=== PATIENT | female | born 1950 | race Caucasian/White ===

== ENCOUNTER → 2016-09-26 | Outpatient (CLI) | payer MEDICARE ==
--- NOTE | 2016-09-26 13:23 | WOMENS IMAGING REPORT ---
EXAM DESCRIPTION: BONE DENSITY HIP/SPINE COMPLETED DATE/TIME: 09/26/2016 1:07 pm REASON FOR STUDY: Z12.31 ROUTINE SCREENING MAMMO Z78.0 Z12.31 ENCNTR SCREEN MAMMOGRAM FOR MALIGNANT NEOPLASM OF ATIYA Z78.0 ASYMPTOMATIC MENOPAUSAL STATE COMPARISON: None. TECHNIQUE: Dual-Energy X-ray Absorptiometry (DEXA) of the AP Spine and Hip. LIMITATIONS: None. FINDINGS: LUMBAR SPINE: The bone mineral density (BMD) measured from L1-L4 in the AP projection correlates with a T-score of -2.4, which is osteopenia as defined by the World Health Organization. HIP: The bone mineral density (BMD) measured in the left femoral neck correlates with a T-score of -1.3, w hich is osteopenia as defined by the World Health Organization. COMMENT: The World Health Organization defines low BMD as follows: T-score: Normal: Greater than -1.0 Osteopenia: Between -1.0 and -2.5 Osteoporosis: Less than -2.5 without fractures Established osteoporosis: Less than -2.5 with fractures In general, you may wish to consider: Diagnosis Treatment Follow-up DEXA Normal BMD Prevention 2-3 years Osteopenia Prevention/Therapy 1-2 years Osteoporosis Therapy Yearly TECHNICAL DOCUMENTATION: JOB ID: [id number] [employer] All Rights Reserved
--- NOTE | 2016-09-26 18:07 | WOMENS IMAGING REPORT ---
EXAM DESCRIPTION: BILAT SCREENING MAMMO W/CAD COMPLETED DATE/TIME: 09/26/2016 1:06 pm REASON FOR STUDY: Z12.31 ROUTINE SCREENING MAMMO Z78.0 Z12.31 ENCNTR SCREEN MAMMOGRAM FOR MALIGNANT NEOPLASM OF ATIYA Z78.0 ASYMPTOMATIC MENOPAUSAL STATE COMPARISON: Baseline study TECHNIQUE: Standard craniocaudal and mediolateral oblique views of each breast recorded using digita l acquisition. LIMITATIONS: None. FINDINGS: Findings present which are benign by mammographic criteria. No suspicious masses, calcifi cations or architectural distortion. Coarse dense benign appearing left breast calcification in the retroareolar region Read with the assistance of CAD. .[facility] - R2 Cenova Version 1.3 .[facility] - R2 Cenova Version 1.3 .[facility] - R2 Cenova Version 2.4 .[facility] - R2 Cenova Version 2.4 .[facility] - R2 [employer] Version 9.2 Benign mammographic findings may include one or more of the following: Smooth masses, popcorn/rim/co arse calcifications, asymmetries, post-procedure changes, and lesions with long-standing stability. BREAST DENSITY: b. There are scattered areas of fibroglandular density. BIRAD: 2 BENIGN FINDING(S) RECOMMENDATION: ROUTINE SCREENING COMMENT: PATIENT NOTIFIED BY LETTER. The [employer] recommends an annual screening mammogram for women aged 40 years or over. Each patient will receive a reminder prior to the anniversary date of her mammogram. The [employer] (ACR) has developed recommendations for screening MRI of the breast s in certain patient populations, to be used in conjunction with mammography. Breast MRI surveillanc e may be appropriate for women with more than 20% lifetime risk of developing breast cancer as deter mined by genetic testing, significant family history of the disease, or history of mantle radiation f or Hodgkins Disease. ACR Practice Guidelines 2008. TECHNICAL DOCUMENTATION: FINDING NUMBER: (1) ASSESSMENT: (1) JOB ID: [id number] [employer]- All Rights Reserved
== END ==
LOC: WI 12:38
PROVIDERS: ATTEND Physician Assistant
DX: Z12.31 Encounter for screening mammogram for malignant neoplasm of breast (principal); Z78.0 Asymptomatic menopausal state; M85.88 Other specified disorders of bone density and structure, other site
CPT/HCPCS: 77080; G0202; 77067

== ENCOUNTER → 2016-10-01 | Outpatient (CLI) | payer MEDICARE ==
--- NOTE | 2016-10-01 17:20 | XCELERA REPORT ---
[address] [address] Lower Extremity Arterial Evaluation Name: SHAW MENDOZA Age: 66 yrs Gender: Female : 1950 Patient Status: Outpatient Patient Location: Study Date: 10/01/2016 01:39 PM Procedure: A color flow and duplex scan of the lower extremity arteries was performed bilaterally with velocity and waveform anaylsis. Ankle brachial indicies performed. Reason For Study: M79.604 M79.605 Ordering Physician: GREGG DEAN PA-C Performed By: Anushka Nice Measurements and Calculations Right Left SED SPECIAL EDUCATION TEACHER PSV 122.6 114.7 cm/sec Prox PFA PSV -92.1 -193.5 cm/sec Prox SFA PSV -109.7 116.3 cm/sec Mid SFA PSV -70.7 -99.7 cm/sec Dist SFA PSV -96.9 -78.6 cm/sec Prox Pop A PSV 53.4 44.3 cm/sec Dist ANABELA PSV 59.4 55.3 cm/sec Dist COMMUNICATION SPEC PSV 61.0 53.6 cm/sec Timoteo Pedis PSV 52.8 52.2 cm/sec Right Side Arterial Evaluation Normal velocity, waveform and triphasic flow are present, from the Common Femoral artery down to the infrageniculate vessels. The ankle-brachial index is 1.08. 0% stenosis is noted. Left Side Arterial Evaluation Normal velocity, waveform and triphasic flow are present, from the Common Femoral artery to the Popliteal, then biphasic to the infrageniculate vessels. The ankle-brachial index is 1.09. 0-19 % stenosis is noted at the infrageniculate vessels. Interpretation Summary No hemodynamically significant lesions in the right lower extremity only, on duplex imaging, at rest. Mild hemodynamically significant lesions in the left lower extremity only, on duplex imaging, at rest. : GREGG DEAN PA-C > Brock Pringle
== END ==
LOC: SP 13:08
PROVIDERS: ATTEND Physician Assistant
DX: M79.604 Pain in right leg (principal); M79.605 Pain in left leg
CPT/HCPCS: 93925

== ENCOUNTER 2017-09-01 13:08 | Emergency (ER) | payer MEDICARE ==
[2017-09-01] MEDS ORDERED: ASPIRIN 81 MG TABLET, CHEWABLE PO ONE (14:28)
--- NOTE | 2017-09-01 14:37 | ER Document Report ---
ED Medical Screen (RME) - General Chief Complaint: Chest Tightness Stated Complaint: CHEST TIGHTNESS, ARM PAIN Time Seen by Provider: 09/01/17 14:28 Mode of Arrival: Ambulatory Information source: Patient Notes: 66-year-old female presents with complaints of chest tightness bilateral arm pain intermittent over the past few days denies any previous cardiac history I have greeted and performed a rapid initial assessment of this patient. A comprehensive ED assessment and evaluation of the patient, analysis of test results and completion of the medical decision making process will be conducted by additional ED providers. PHYSICAL EXAMINATION: GENERAL: Well-appearing, well-nourished and in no acute distress. HEAD: Atraumatic, normocephalic. EYES: Pupils equal round extraocular movements intact, conjunctiva are normal. ENT: Nares patent NECK: Normal range of motion LUNGS: No respiratory distress Musculoskeletal: Normal range of motion NEUROLOGICAL: Normal speech, normal gait. PSYCH: Normal mood, normal affect. SKIN: Warm, Dry, normal turgor, no rashes or lesions noted. TRAVEL OUTSIDE OF THE [place] IN LAST 30 DAYS: No - Related Data Allergies/Adverse Reactions: No Known Allergies Allergy (Unverified 09/01/17 13:10) Past Medical History - Social History Frequency of alcohol use: None Drug Abuse: None Pulmonary Medical History: Reports: Hx COPD Renal/ Medical History: Denies: Hx Peritoneal Dialysis Past Surgical History: Reports: Hx Tonsillectomy Physical Exam - Vital signs Vitals: Temp Pulse Resp BP Pulse Ox 98.7 F 99 20 133/69 H 95 09/01/17 13:25 09/01/17 13:25 09/01/17 13:25 09/01/17 13:25 09/01/17 13:25 Course - Vital Signs Vital signs: Temp Pulse Resp BP Pulse Ox 98.7 F 99 20 133/69 H 95 09/01/17 13:25 09/01/17 13:25 09/01/17 13:25 09/01/17 13:25 09/01/17 13:25
[2017-09-01 14:58] LABS: ABSOLUTE BASOPHILS # (AUTO) 0.1 10^3/uL (0.0-0.2); ABSOLUTE EOSINOPHILS # (AUTO) 0.4 10^3/uL (0.0-0.6); ABSOLUTE LYMPHOCYTES (AUTO) 4.3 10^3/uL (0.5-4.7); ABSOLUTE NEUT (AUTO) 6.1 10^3/uL (1.7-8.2); BASOPHILS % (AUTO) 0.5 % (0-2); EOSINOPHILS % (AUTO) 3.7 % (0-6); HEMATOCRIT 43.3 % (36.0-47.0); HEMOGLOBIN 14.6 g/dL (12.0-15.5); HGB HCT DIFFERENCE 0.5; LYMPHOCYTES % (AUTO) 35.8 % (13-45); MEAN CORPUSCULAR HEMOGLOBIN 32.7 pg (27.0-33.4); MEAN CORPUSCULAR HGB CONC 33.6 g/dL (32.0-36.0); MEAN CORPUSCULAR VOLUME 97 fl (80-97); MONOCYTES % (AUTO) 8.4 % (3-13); RED BLOOD COUNT 4.44 10^6/uL (3.72-5.28); RED CELL DISTRIBUTION WIDTH 12.7 % (11.5-14.0); SEGMENTED NEUTROPHILS % (AUTO) 51.6 % (42-78); WHITE BLOOD COUNT 11.9 10^3/uL (4.0-10.5)
--- NOTE | 2017-09-01 15:07 | RADIOLOGY REPORT (SQ) ---
EXAM DESCRIPTION: CHEST SINGLE VIEW COMPLETED DATE/TIME: 09/01/2017 2:56 pm REASON FOR STUDY: chest pain COMPARISON: 06/11/2016. EXAM PARAMETERS: NUMBER OF VIEWS: One view. TECHNIQUE: Single frontal radiographic view of the chest acquired. RADIATION DOSE: NA LIMITATIONS: None. FINDINGS: LUNGS AND PLEURA: No opacities, masses or pneumothorax. No pleural effusion. MEDIASTINUM AND HILAR STRUCTURES: No masses. Contour normal. HEART AND VASCULAR STRUCTURES: Heart normal in size. Normal vasculature. BONES: No acute findings. HARDWARE: None in the chest. OTHER: No other significant finding. IMPRESSION: NO ACUTE RADIOGRAPHIC FINDING IN THE CHEST. TECHNICAL DOCUMENTATION: JOB ID: [id number] [employer]- All Rights Reserved
[2017-09-01] MEDS ORDERED: NITROGLYCERIN 0.4 MG/TAB 25 TAB/BOTTLE SL PRN (15:15)
[2017-09-01 15:21] LABS: ALANINE AMINOTRANSFERASE 33 U/L (9-52); ALKALINE PHOSPHATASE 115 U/L (38-126); ANION GAP 11 (5-19); ASPARTATE AMINO TRANSFERASE 27 U/L (14-36); BILIRUBIN,DIRECT 0.3 mg/dL (0.0-0.4); BILIRUBIN,TOTAL 0.4 mg/dL (0.2-1.3); BLOOD UREA NITROGEN 15 mg/dL (7-20); CALCIUM 10.5 mg/dL (8.4-10.2); CARBON DIOXIDE 29 mmol/L (22-30); CHLORIDE 105 mmol/L (98-107); CREATINE KINASE 70 U/L (30-135); CREATININE RESULT 0.86 mg/dL (0.52-1.25); GLUCOSE 107 mg/dL (75-110); POTASSIUM 4.2 mmol/L (3.6-5.0); SODIUM 144.6 mmol/L (137-145); TOTAL PROTEIN 6.5 g/dL (6.3-8.2)
[2017-09-01 15:33] LABS: CREATINE KINASE MB 3.52 ng/mL (<4.55)
[2017-09-01 15:38] LABS: TROPONIN I 0.153 ng/mL
--- NOTE | 2017-09-01 15:45 | ER Document Report ---
ED Cardiac - General Mode of Arrival: Ambulatory Information source: Patient TRAVEL OUTSIDE OF THE [place] IN LAST 30 DAYS: No - HPI Patient complains to provider of: Chest tightness Quality of pain: Pressure, Sharp Chest pain precipitating factors: see notes above Cardiac risk factors: Smoker, + Family history Associated symptoms: Other - see notes above Exacerbated by: Lying flat <AREN MERA - Last Filed: 09/01/17 16:32> <COREY BACON - Last Filed: 09/01/17 22:54> - General Chief Complaint: Chest Tightness Stated Complaint: CHEST TIGHTNESS, ARM PAIN Time Seen by Provider: 09/01/17 14:28 Notes: 66 year old female with history of COPD presents to the ED complaining of intermittent chest pressure that started yesterday and worsened this morning. Patient reports that yesterday she had many episodes lasting 5-10 minutes of chest pressure that was exacerbated when laying down and relieved when sitting upright. Patient additionally complains of having intermittent sharp pain and tingling from the bilateral elbows down to her fingers which started last week, but worsened with the onset of chest pressure yesterday. Patient reports to using Excedrin, Goody Powder, and Aleve to no relief. This morning she experienced similar chest pressure and arm pain, but lasted for more than 30 minutes. Patient reports nausea and lightheadedness. Currently, the patient is complaining of substernal pressure while laying down. PCP: Gregg Sawyer (AREN MERA) - Related Data Allergies/Adverse Reactions: No Known Allergies Allergy (Unverified 09/01/17 13:10) Past Medical History - General Information source: Patient - Social History Smoking Status: Current Every Day Smoker Chew tobacco use (# tins/day): No Frequency of alcohol use: None Drug Abuse: None Family History: Other - Both parents have history of CAD in their 70s Patient has suicidal ideation: No Patient has homicidal ideation: No - Past Medical History Cardiac Medical History: Denies: Hx Hypercholesterolemia, Hx Hypertension Pulmonary Medical History: Reports: Hx COPD Endocrine Medical History: Denies: Hx Diabetes Mellitus Type 2 Renal/ Medical History: Denies: Hx Peritoneal Dialysis Past Surgical History: Reports: Hx Tonsillectomy <AREN MERA - Last Filed: 09/01/17 16:32> - Social History Smoking Education Provided: Yes <COREY BACON - Last Filed: 09/01/17 22:54> Review of Systems - Review of Systems Constitutional: No symptoms reported EENT: No symptoms reported Cardiovascular: See HPI, Chest pain, Lightheaded Respiratory: No symptoms reported Gastrointestinal: See HPI, Nausea Genitourinary: No symptoms reported Female Genitourinary: No symptoms reported Musculoskeletal: See HPI, Other - bilateral arm pain Skin: No symptoms reported Hematologic/Lymphatic: No symptoms reported Neurological/Psychological: No symptoms reported -: Yes All other systems reviewed and negative <AREN MERA - Last Filed: 09/01/17 16:32> Physical Exam <AREN MERA - Last Filed: 09/01/17 16:32> <COREY BACON - Last Filed: 09/01/17 22:54> - Vital signs Vitals: Temp Pulse Resp BP Pulse Ox 98.7 F 99 20 133/69 H 95 09/01/17 13:25 09/01/17 13:25 09/01/17 13:25 09/01/17 13:25 09/01/17 13:25 - Notes Notes: GENERAL: Alert, interacts well. No acute distress. HEAD: Normocephalic, atraumatic. EYES: Pupils equal, round, and reactive to light. Extraocular movements intact. ENT: Oral mucosa moist, tongue midline. NECK: Full range of motion. Supple. Trachea midline. LUNGS: Clear to auscultation bilaterally, no wheezes, rales, or rhonchi. No respiratory distress. HEART: Regular rate and rhythm. No murmurs, gallops, or rubs. ABDOMEN: Soft. Non-distended. Bowel sounds present in all 4 quadrants. Mild tenderness to palpation to the epigastrium. EXTREMITIES: Moves all 4 extremities spontaneously. No edema, radial and dorsalis pedis pulses 2/4 bilaterally. No cyanosis. NEUROLOGICAL: Alert and oriented x3. Normal speech. PSYCH: Normal affect, normal mood. SKIN: Warm, dry, normal turgor. No rashes or lesions noted. (AREN MERA) Course - Laboratory Result Diagrams: 09/01/17 14:49 09/01/17 14:49 <AREN MERA - Last Filed: 09/01/17 16:32> - Laboratory Result Diagrams: 09/01/17 14:49 09/01/17 14:49 <COREY BACON - Last Filed: 09/01/17 22:54> - Re-evaluation Re-evalutation: 09/01/17 16:00 CBC shows leukocytosis of 11.9, CMP grossly unremarkable, cardiac enzymes show non-STEMI with a positive troponin of 0.153, chest x-ray shows no acute process , patient was given aspirin, Lovenox, nitroglycerin which decreased her pain but did not completely relieve it, initial EKG shows sinus tachycardia at a rate of [address] segment depressions but does not meet STEMI criteria, repeat EKG shows improvement in the ST segment depressions and a sinus rhythm at a rate of 80. At this time I discussed the positive troponin and the non-STEMI finding with the patient and the fact that we do not have interventional cardiology here. Patient is agreeable to being transferred in case she needs to have a catheterization performed. Patient is agreeable to transfer, requests transfer to [facility]. They have initiated a phone call to their transfer line and they will call me back. 09/01/17 16:23 Patient was rechecked, pain is almost completely gone however she now has some wheezing when she walks back from the bathroom, she will be given an albuterol breathing treatment. Has not had any desaturation. Discussed case with Dr. Estevez the flight attendant ramp from [facility], states that given her history of COPD and the fact that she is having some wheezing and shortness of breath she would like this patient placed on the medicine service and cardiology will consult. States that because the patient is currently wheezing she does not want the patient to receive a beta-heather, if the wheezing resolved by the time she gets [facility] they will give her 1 orally there. 09/01/17 16:[address] Heller from [facility] internal medicine, accepts the patient to his service. They will call me with bed assignment and then we will arrange transport. 09/01/17 16:34 prehypertension will continue to be followed at [facility]. 09/01/17 22:53 This is a late entry, at 1945 transport was at bedside and I did go in and personally reexamined the patient, presently she is denying any shortness of breath or any chest pain. Has no complaints aside from the skin on her arm where the IV is taped is pulling. Patient is stable for transport. (COREY BACON) - Vital Signs Vital signs: Temp Pulse Resp BP Pulse Ox 97.9 F 99 17 102/61 95 09/01/17 20:10 09/01/17 13:25 09/01/17 19:58 09/01/17 19:59 09/01/17 19:58 - Laboratory Laboratory results interpreted by me: 09/01/17 09/01/17 14:49 14:49 WBC 11.9 H Calcium 10.5 H - EKG Interpretation by Me Additional EKG results interpreted by me: 09/01/17 16:00 Initial EKG shows sinus tachycardia at a rate of 102, left axis deviation, normal intervals, slight ST segment depressions in lead II, less than 1 mm, also slight ST segment depressions in aVF, less than 1 mm, minimal ST segment elevations in V2 again less than 1 mm does not meet STEMI criteria, T-wave inversions in the 2, V3, V4, V5 and biphasic T waves in V6, T-wave inversions in aVL as well per my interpretation. Repeat EKG approximately 2 hours later shows sinus rhythm at a rate of 80, ST segment depressions have resolved, ST segment elevations are still minimal in V2 , still less than 1 mm. T-wave inversions remain in aVL, V2 through V5 per my interpretation. (COREY BACON) Critical Care Note - Critical Care Note Total time excluding time spent on procedures (mins): 45 <COREY BACON - Last Filed: 09/01/17 22:54> Discharge <AREN MERA - Last Filed: 09/01/17 16:32> <COREY BACON - Last Filed: 09/01/17 22:54> - Discharge Clinical Impression: Non-ST elevation (NSTEMI) myocardial infarction, Prehypertension, Tobacco abuse , Tobacco abuse counseling Condition: Stable Disposition: [facility] Referrals: GREGG SAWYER PA-C [Primary Care Provider] - Follow up as needed Scribe Attestation: 09/01/17 22:54 I personally performed the services described in the documentation, reviewed and edited the documentation which was dictated to the scribe in my presence, and it accurately records my words and actions. (KLOCEK,COREY) Scribe Documentation - Scribe Written by Job:: Job Sigala, 09/01/2017 1622 acting as scribe for :: Devonte <AREN MERA - Last Filed: 09/01/17 16:32>
[2017-09-01] MEDS ORDERED: ENOXAPARIN SODIUM INJ 80 MG/0.8 ML DISP.SYRIN SUBCUT ONE (15:55)
--- NOTE | 2017-09-01 15:55 | EKG REPORT ---
SEVERITY:- ABNORMAL ECG - SINUS RHYTHM PROBABLE ANTEROSEPTAL INFARCT, AGE INDETERM LATERAL LEADS ARE ALSO INVOLVED : Confirmed by: Alicia Ruelas 01-Sep-2017 15:54:43
--- NOTE | 2017-09-01 15:55 | EKG REPORT ---
SEVERITY:- ABNORMAL ECG - SINUS TACHYCARDIA PROBABLE INFERIOR INFARCT, OLD PROBABLE ANTEROSEPTAL INFARCT, AGE INDETERM LATERAL LEADS ARE ALSO INVOLVED : Confirmed by: Alicia Ruelas 01-Sep-2017 15:54:53
[2017-09-01] MEDS ORDERED: NITROGLYCERIN 2% OINTMENT 1 GM PACKET TP ONE (15:56)
[2017-09-01] MEDS ORDERED: ALBUTEROL SULFATE 0.083% NEB 2.5 MG/3 ML AMPUL NEB ONE (16:21)
[2017-09-01 20:01] VITALS: BP 102/61
== END 2017-09-01 20:13 | disposition short-term general hospital (02) ==
LOC: ER 13:08
DX: I21.4 Non-ST elevation (NSTEMI) myocardial infarction (principal); R07.9 Chest pain, unspecified; M79.602 Pain in left arm; M79.601 Pain in right arm; R11.0 Nausea; R42 Dizziness and giddiness; F17.200 Nicotine dependence, unspecified, uncomplicated; R03.0 Elevated blood-pressure reading, without diagnosis of hypertension
CPT/HCPCS: 93005; 94640; 99285; 96372; 36415; 82553; 82550; 83690; 85025; 80053; 84484; 71010; 93010; A9270 ×3; J1650